=== PATIENT | female | born 1970 | race Caucasian/White ===

== ENCOUNTER → 2016-09-03 | Outpatient (CLI) | payer OTHER ==
--- NOTE | 2016-09-03 18:32 | MR ---
MRI of the left hip, without contrast History: Left hip pain, evaluate for acetabular labral tear. Technique: Large field of view axial and coronal MR sequences of the pelvis were followed by small fi eld of view sequences of the left hip in 3 planes. Findings: Detailed imaging of the left hip demonstrates a nondisplaced tear of the anterosuperior acetabular la shoaib. Undercutting of the labrum extends from the 2 o'clock position anteriorly to the 12 o'clock pos ition superiorly, with associated labral maceration and T2 signal. The remainder of the acetabular la shoaib is intact, and articular cartilage of the hip joint is intact. Synovial herniation pits are iden tified along the anterior aspect of the left femoral head neck junction. Features of pincer-type femo ral acetabular impingement are noted with a lateral center edge angle of 51 degrees. The alpha angle is normal at 42 degrees. On large field of view imaging, gluteal tendons appear intact over the greater trochanters. There is minimal increased T2 signal within the right hamstring tendon origin at the ischial tuberosity, bradford tible with tendinosis, without tear bilaterally. No pelvic masses. Sacroiliac joints and symphysis pu bis appear normal Impression: 1. Pincer-type femoral acetabular impingement, left hip, with nondisplaced tear of the anterosuperior acetabular labrum. No chondral lesion. 2. Mild proximal right hamstring tendinosis at the ischial tuberosity, without tear bilaterally.
== END ==
LOC: FIMAGING 16:07
PROVIDERS: ATTEND Orthopaedic Surgery
DX: M24.852 Other specific joint derangements of left hip, not elsewhere classified (principal)

== ENCOUNTER → 2016-11-27 | Outpatient (CLI) | payer OTHER | LOC: FIMAGING 10:20 | PROVIDERS: ATTEND Physical Medicine & Rehabilitation | DX: M89.9 Disorder of bone, unspecified (principal) | CPT/HCPCS: A9503 ==